=== PATIENT | male | born 1965 | race Caucasian/White ===

== ENCOUNTER 2024-09-13 07:45 | Observation (INO) ==
--- NOTE | 2024-08-22 14:54 | PAT Medication Instructions ---
Medication Instructions Date of Service August 22, 2024 Home Medications atorvastatin 20 mg tablet (Lipitor) 20 mg PO QAM celecoxib 50 mg capsule (Celebrex) 200 mg PO HS pantoprazole 20 mg tablet,delayed release 20 mg PO QAM sertraline 50 mg tablet 50 mg PO QAM ASK your surgeon for instructions celecoxib 50 mg capsule (Celebrex) 200 mg PO HS Take morning of surgery With a small sip of water, OTHERWISE NOTHING TO EAT OR DRINK AFTER MIDNIGHT: atorvastatin 20 mg tablet (Lipitor) 20 mg PO QAM pantoprazole 20 mg tablet,delayed release 20 mg PO QAM sertraline 50 mg tablet 50 mg PO QAM Other Notes If you have any questions please call us at [phone] or [phone] or [phone] or [phone]
--- NOTE | 2024-08-30 14:13 | Anesthesiology Consultation ---
Date of Service August 30, 2024 Assessment & Plan (1) Encounter for pre-operative examination: - will request copy of 08/23/24 PCP clearance note, Daniel High [facility]. Chart Review Chart Review: Pending: Refer to Additional Notes / Consult section and Patient seen in Pre Admission Testing Teaching & Discussion Pre-Anesthesia Teaching/Discussion Notes: Instructed NPO after midnight before surgery, except medications with 15 cc of water. Medication instructions provided according to the PAT guidelines. History Surgery Operation Date: 09/13/24 09:00 Proposed Procedures p Left Total Shoulder Arthroplasty, Possible Left Shoulder Biceps Tenodesis, Possible Left Shoulder Posterior Capsular Shift - Norman Palacios MD Height/Weight Height: 5 ft 8 in Weight: 88.5 kg Allergies Allergy/AdvReac Type Severity Reaction Status Date / Time Penicillins Allergy Unknown Hives Verified 08/18/24 09:19 Medications Home Medications Medication Instructions Recorded Confirmed Last Taken atorvastatin 20 mg tablet (Lipitor) 20 mg PO QAM 08/18/24 08/18/24 Unknown celecoxib 50 mg capsule (Celebrex) 200 mg PO HS 08/18/24 08/18/24 Unknown pantoprazole 20 mg tablet,delayed 20 mg PO QAM 08/18/24 08/18/24 Unknown release sertraline 50 mg tablet 50 mg PO QAM 08/18/24 08/18/24 Unknown Past Medical History Medical History Acid reflux stable w/ pantoprazole Depression Dyslipidemia History of atrial fibrillation x 1 episode >> in his early 40's, lasted ~24 hours; converted on his own without intervention > no issues since, no cardio History of esophageal dilatation (~2019) History of right tennis elbow Patient denies h/o stroke, seizures, heart attack, heart failure, DM, HTN, blood clots/DVTs or blood transfusions. Exercise / Class Metabolic Activity II 4-5 Yardwork/Stairs/Walk up hill (denies chest discomfort or shortness of breath with one flight of stairs) Past Family History Family History Other No family history of adverse response to anesthesia Past Surgical History Surgical History History of arthroscopic surgery of shoulder left History of carpal tunnel surgery of right wrist History of esophagogastroduodenoscopy (EGD) History of repair of ACL left Hx of appendectomy Hx of colonoscopy Past Anesthesia History No Hx of Anesthesia Complications and No Family Hx of Anesthesia Complications History of PONV No Hx of PONV and Hx of Motion Sickness Social History Smoking Status: Never smoker Do You Dip or Chew Tobacco: No Hx Alcohol Use: No Hx Substance Use: No substance use type: does not use Review of Systems Patient denies chest pain, shortness of breath, dyspnea on exertion, snoring, witnessed apneas, fever, chills, cough, wheezing, or palpitations. Physical Exam Vital Signs Vitals BP 118/80 P 64 TEMP 97.8 SP02 96% on RA RESP 18 Physical Patient resting comfortably in chair in no acute distress, alert and oriented, responding appropriately throughout visit Full cervical extension range of motion without pain TMD 3.5 finger breadths Mallampati Score 3 Dentition: intact, denies chipped or loose teeth, caps/crowns, implants or bridges Lungs: normal respiratory effort. Good air movement, clear throughout to auscultation, no adventitious breath sounds Cardiac: regular rate and rhythm, no murmurs noted Carotid arteries: negative bruit bilat Lab Results Anesthesia Preop Results Results Anesthesia Widget: WBC 5.30 K/ul (4.8-10.8) 08/30/24 Hgb 13.7 g/dl (14.0-18.0) L 08/30/24 Hct 41.8 % (42.0-52.0) L 08/30/24 Plt 195 K/uL (130-400) 08/30/24 Na 141 mmol/L (136-145) 08/30/24 K 4.0 mmol/L (3.5-5.1) 08/30/24 Cl 107 mmol/L (98-107) 08/30/24 CO2 29 mmol/L (21-32) 08/30/24 BUN 17 mg/dl (6-23) 08/30/24 Creat 0.94 mg/dl (0.6-1.4) 08/30/24 Glucose Level 118 mg/dl (70-99(Fasting)) H 08/30/24 PT 10.9 Seconds (9.0-12.0) 08/30/24 PTT 24 Seconds (21-31) 08/30/24 INR 1.0 (0.9-1.1) 08/30/24 Urine Color Yellow 08/30/24 Urine Appearance Clear (Clear) 08/30/24 Urine pH 6.5 (4.5-7.5) 08/30/24 Urine Specific [place] 1.021 (1.000-1.030) 08/30/24 Urine Protein Negative (Negative) 08/30/24 Urine Glucose (UA) Negative (Negative) 08/30/24 Urine Ketones Negative (Negative) 08/30/24 Urine Blood Negative (Negative) 08/30/24 Urine Nitrite Negative (Negative) 08/30/24 Urine Bilirubin Negative (Negative) 08/30/24 Urine Urobilinogen Negative (Negative) 08/30/24 Urine Leukocyte Esterase Negative (Negative) 08/30/24 Blood Type A Positive 08/30/24 Antibody Screen NEGATIVE 08/30/24 Testing Electrocardiogram Date: 08/30/24 Sinus bradycardia, rate 54 bpm Chest X-Ray Date: 08/30/24 No evidence of consolidation, collapse, or focal opacities. No acute cardiopulmonary abnormalities identified.
--- NOTE | 2024-09-10 10:04 | History & Physical Report ---
Date of Service September 10, 2024 Assessment & Plan (1) Osteoarthritis of left glenohumeral joint: Plan: End-stage osteoarthritis left glenohumeral joint. Document intact rotator cuff. Prior arthroscopy and prior MRI. Plan is for anatomic total shoulder replacement. May need augmented glenoid component or posterior capsular shift and will perform biceps tenodesis. Plan is for a stemless simplicity total shoulder replacement if bone quality satisfactory. History of Present Illness Chief Complaint: Chronic right shoulder pain and stiffness Primary Care Provider: Clara Thornton PA-C 58-year-old male progressive pain decreased range of motion in his shoulder due to osteoarthritis. History of arthroscopic surgery 2018 subacromial decompression removal large loose body joint debridement. Patient denies headaches, sweats, fevers, chills, double vision, blurred vision, cough, sore throat, dysphagia, chest pain, sob, wheezing, n/v/d/c, numbness, tingling, fatigue, urinary symptoms. ROS positive for depression, acid reflux, kidney stones, high cholesterol. Allergies Allergy/AdvReac Type Severity Reaction Status Date / Time Penicillins Allergy Unknown Hives Verified 08/18/24 09:19 Home Medications Medication Instructions Recorded Confirmed Type atorvastatin 20 mg tablet (Lipitor) 20 mg PO QAM 08/18/24 08/18/24 History celecoxib 50 mg capsule (Celebrex) 200 mg PO HS 08/18/24 08/18/24 History pantoprazole 20 mg tablet,delayed 20 mg PO QAM 08/18/24 08/18/24 History release sertraline 50 mg tablet 50 mg PO QAM 08/18/24 08/18/24 History Past Med/Surg History Problem List (Updated 09/10/24 @ 10:03 by Norman Palacios MD) Osteoarthritis of left glenohumeral joint Encounter for pre-operative examination Medical History Acid reflux stable w/ pantoprazole Depression History of atrial fibrillation x 1 episode >> in his early 40's, lasted ~24 hours; converted on his own without intervention > no issues since, no cardio Dyslipidemia History of esophageal dilatation (~2019) History of right tennis elbow Surgical History History of esophagogastroduodenoscopy (EGD) Hx of colonoscopy History of arthroscopic surgery of shoulder left Hx of appendectomy History of carpal tunnel surgery of right wrist History of repair of ACL left Family History Other No family history of adverse response to anesthesia Social History Smoking Status: Never smoker Second Hand Exposure: No; Do You Dip or Chew Tobacco: No; Tobacco Cessation Education Requested by Patient: No Hx Alcohol Use: No Hx Substance Use: No Preferred Language: Ivorian Communication Ability: Effective Atlassian Administrator Required: No Beliefs That Will Affect Care: None Current Living Situation: Spouse Other Information That Helps Us Care for You: No Feels Safe at Home: Yes Safety Concerns: Feels Safe At This Time Assistive Devices: Glasses and Hearing Aid - Bilateral Review of Systems All systems reviewed & are unremarkable except as noted in HPI & below Physical Exam Constitutional: WD/WN, vitals as above Respiratory: normal respiratory effort; no respiratory distress Cardiovascular: Rate/Rhythm: regular rate and regular rhythm Musculoskeletal: Left shoulder with glenohumeral crepitation with range of motion decreased range of motion with max of passive range of motion 100 degrees flexion 70 degrees external and internal rotation and abduction. Distal neurocirculatory exam intact. Still has good strength. Skin: no rashes, warm and dry Neurologic: normal touch/pain/proprioception Psychiatric: A+Ox3, euthymic affect Results & Data Diagnostic Findings End-stage glenohumeral osteoarthritis with B2 glenoid grade 4 osteoarthritis [id number] some posterior glenoid bone loss and some posterior humeral head subluxation
[~2024-09-13 07:45] MED LIST: BUPIVACAINE 0.5 % 5 MG/1 ML PF 10ML VIAL ONE; SODIUM CHLORIDE 0.9% PF INJ 10 ML VIAL ONE
[2024-09-13] MEDS ORDERED: MIDAZOLAM HCL 1 MG/ML 2ML VIAL ONE (08:00)
[2024-09-13] MEDS ORDERED: fentaNYL citrate PF 100 MCG/2 ML VIAL ONE (08:01)
[2024-09-13] MEDS ORDERED: ROCURONIUM BROMIDE 10 MG/ML 5 ML VIAL IV ONE (08:03)
[2024-09-13] MEDS ORDERED: PROPOFOL IV EMULSION 10 MG/ML 20 ML VIAL IV ONE (08:04)
[2024-09-13] MEDS ORDERED: METOCLOPRAMIDE HCL INJ 5 MG/ML 2 ML VIAL ONE (08:04)
[2024-09-13] MEDS ORDERED: DEXAMETHASONE SOD INJ 4 MG/ML VIAL ONE (08:04)
[2024-09-13] MEDS ORDERED: ONDANSETRON INJ 2 MG/ML 2 ML VIAL ONE (08:04)
[2024-09-13] MEDS: VANCOMYCIN HCL 1,250 MG in SODIUM CHLORIDE 0.9% 250 ML IV SCH ×2 (08:18→20:23)
[2024-09-13] MEDS: LR 60ML/HR IV SCH (08:18)
[2024-09-13] MEDS: LR 15ML/HR IV SCH (08:18)
[2024-09-13] MEDS: GABAPENTIN 600 MG DOSE PO SCH (08:31)
[2024-09-13] MEDS: METOCLOPRAMIDE HCL 10 MG TABLET PO SCH (08:32)
[2024-09-13] MEDS: ACETAMINOPHEN 500 MG TAB PO SCH ×2 (08:32→16:34)
[2024-09-13] MEDS: CeleBREX 200 MG CAP PO SCH (08:32)
[2024-09-13] MEDS: dexAMETHasone**PF** 10 MG/ML VIAL IV SCH (08:33)
[2024-09-13] MEDS: FAMOTIDINE 20 MG TAB PO SCH (08:35)
[2024-09-13] MEDS ORDERED: LIDOCAINE 2% 2 ML VIAL/AMP(20MG/ML) INFIL ONE (08:56)
[2024-09-13] MEDS ORDERED: PROMETHAZINE HCL 6.25 MG in SODIUM CHLORIDE 0.9% 50 ML IV PRN (09:31)
[2024-09-13] MEDS ORDERED: ATROPINE SULFATE 0.1 MG/ML 10ML SYR IV PRN (09:31)
[2024-09-13] MEDS ORDERED: LABETALOL HCL IV 5 MG/ML 20ML IV PRN (09:31)
[2024-09-13] MEDS ORDERED: fentaNYL citrate PF 100 MCG/2 ML VIAL IV PRN (09:31)
[2024-09-13] MEDS ORDERED: ONDANSETRON INJ 2 MG/ML 2 ML VIAL IV PRN ×2 (09:31→15:06)
[2024-09-13] MEDS ORDERED: KETOROLAC 30 MG/ML VIAL IV PRN (09:31)
--- NOTE | 2024-09-13 10:02 | History & Physical Bridge Note ---
Date of Service September 13, 2024 History & Physical Bridge Note I have examined the patient, reviewed the History & Physical and in the interval since the performance of the History & Physical I have noted the following changes of clinical significance: no changes noted
[2024-09-13] MEDS: TRANEXAMIC ACID 1,000 MG **IV Pre-op IV SCH (10:10)
--- OUTSIDE RECORDS SUMMARY | 2024-09-13 10:53 | External Medical Summary | Summary of Care ---
Author Name Unknown Organization [facility] Address [address] [place] [address] Phone [phone] Care Team Providers Care Ob Scrub Tech Name Role Phone Daniel High PA-C Primary Care Provide r Reason for Visit * Reason Comments Physical-Exam No concerns. Having surgery in a couple of weeks replacing my left shoulder. Encounter Details Date Type Department Care Team (Late st Contact Info) Description 08/23/2024 2:00 PM EST Office Visit Betty Benz [address] [facility] [place] [id number] Daniel High PA-C [address] [facility] [place] [id number] Preoperative general physical examination*; Pure hypercholesterolemia; Gastroesophageal reflux disease without esophagitis; Anxiety Allergies Active Allergy Reactions Criticality Noted Date Comments Penicillin G Hives Low 08/23/2024 Penicillins Hives 12/07/2002 documented as of this encounter (statuses as of 09/05/2024) Medications Atorvastatin Calcium 20 MG Oral Tablet (Lipitor)Indications:Pur e hypercholesterolemia TAKE ONE (1) TABLET BY MOUTH EVERY EVENING. 90 Tablet 07/04/20 24 Active Pantoprazole Sodium 40 MG Oral Tablet Delayed Release (Protonix)Indications:Ga stroesophageal reflux disease without esophagitis TAKE ONE (1) TABLET BY MOUTH IN THE MORNING. 90 Tablet 07/04/20 24 Active Sertraline HCl 50 MG Oral Tablet (Zoloft)Indications:Anxi ety TAKE ONE (1) TABLET BY MOUTH IN THE MORNING. 90 Tablet 07/04/20 24 Active documented as of this encounter (statuses as of 09/05/2024) Active Problems Problem Noted Date Diagnosed Date Prediabetes 09/24/2023 Gastritis, bile acid reflux 09/09/2020 Anxiety 09/05/2018 Gastroesophageal reflux disease 09/05/2018 History of atrial fibrillation 12/31/2011 Pure hypercholesterolemia documented as of this encounter (statuses as of 09/05/2024) Resolved Problems Problem Noted Date Diagnosed Date Resolved Date Knee pain, right 06/27/2015 11/05/2015 documented as of this encounter (statuses as of 09/05/2024) Immunizations Name Administration Dates Next Due TD, Preservative Free 09/07/2018 TDAP (age 10 and older)(Boostrix) 07/08/2023 TDAP, Age 7 and older, IM (Adacel) 07/16/2008 documented as of this encounter Social History Tobacco Use Types Packs/Day Years Used Date Smoking Tobacco: Never Smokeless Tobacco: Never Tobacco Cessation:Counseling Given: Not Answered Alcohol Use Standard Drinks/Week Comments No 0 (1 standard drink = 0.6 oz pur e alcohol) PHQ-2 Answer Date Recorded PHQ Adult Total Score 0 09/23/2023 Hunger Vital Sign Answer Date Recorded Within the past 12 months, y ou worried that your food would run out before you got the money to buy more. Never true 09/23/19 24 Within the past 12 months, t he food you bought just didn't last and you didn't have money to get more. Never true 09/23/2023 Childcare Answer Date Recorded Do you feel overwhelmed with taking care of a child, family member or friend? No 09/23/2023 Does your family need help f inding childcare? (Household - for ages 0-17 years) Not on file 09/23/2023 Clothing Answer Date Recorded Have you been unable to get clothing when it was really needed? No 09/23/2023 Is your family able to get c lothes or diapers when needed? (Household - for ages 0-17 years) Not on file 09/23/2023 Personal Safety Answer Date Recorded Do you feel unsafe or have concerns for your saf ety? No 09/23/2023 Do you have concerns for you r family's safety? (Household - for ages 0-17 years) Not on file 09/23/2023 Utilities Answer Date Recorded Do you have trouble paying y our heating, water, or electric bill? No 09/23/2023 Is your family able to pay t he heat, water, or electric bill? (Household - for ages 0-17 years) Not on file 09/23/2023 Does your family have access to good internet? (Household - for ages 0-17 years) Not on file 09/23/2023 Employment Status Answer Date Recorded Are you unemployed or without regular income? No 09/23/2023 Does the household have a [facility] source of income? (Household - for ages 0-17 years) Not on file 09/23/2023 Social Connections Answer Date Recorded How often do you feel lonely or isolated from th ose around you? Never 09/23/2023 Financial Resource Strain Answer Date R ecorded Do you have any trouble payi ng for your medications, or do you think you might in the future? No 09/23/2023 Does your family have troubl e paying for medicine? (Household - for ages 0-17 years) Not on file 09/23/2023 Transportation Needs Answer Date Record ed READ ONLY Do you have troubl e getting a ride to medical visits or work? Never True 09/23/2023 Does your family have a hard time getting a ride to doctors visits? (Household - for ages 0-17 years) Not on file 09/23/2023 Has lack of transportation k ept you from medical appointments, meetings, work, or from getting things needed for daily living? Check all that apply. (Adult - for ages 18 years and over) Not on file 09/23/2023 Do you (or your family) have trouble finding or paying for a ride (transportation)? (Household - for ages 0-17 years) Not on file 09/23/2023 Housing Stability Answer Date Recorded Do you currently live in a s helter or have no steady place to sleep at night? No 09/23/2023 READ ONLY Do you think you a re at risk of becoming homeless? No 09/23/2023 Does your family worry about paying for your home or becoming homeless? (Household - for ages 0-17 years) Not on file 0 09/23/2023 Are you homeless or worried that you might be in the future? (Adult - for ages 18 years and over) Not on file Are you (or your family) jonathan eless or worried that you might be in the future? (Household - for ages 0-17 years) Not on file Food Insecurity Answer Date Recorded Do you need food for this week? No 09/23/2023 Are you able to get enough f ood for your family? (Household - for ages 0-17 years) Not on file 09/23/2023 Does your family need food t his week? (Household - for ages 0-17 years) Not on file 09/23/2023 Do you always have enough fo od for your family? (Household - for ages 0-17 years) Not on file 09/23/2023 Food Insecurity Answer Date Recorded Within the past 12 months, y ou worried that your food would run out before you got the money to buy more. Never true 09/23/19 24 Within the past 12 months, t he food you bought just didn't last and you didn't have money to get more. Never true 09/23/2023 Do you need food for this week? 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 Not on file Not on file documented as of this encounter Last Filed Vital Signs Vital Sign Reading Time Taken Comments Blood Pressure 120/60 08/23/2024 2:06 PM EST Pulse 60 08/23/2024 2:06 PM EST Temperature 35.6 C (96 F) 08/23/2024 2:06 PM EST Respiratory Rate 20 08/23/2024 2:06 PM EST Oxygen Saturation 99% 08/23/2024 2:06 PM EST Inhaled Oxygen Concentration - - Weight 88.9 kg (196 lb) 08/23/2024 2:06 PM EST Height 172.7 cm (5' 8") 08/23/2024 2:06 PM EST Body Mass Index 29.8 08/23/2024 2:06 PM EST documented in this encounter Progress Notes * Daniel High PA-C - 08/23/2024 2:15 PM EST Subjective Levy Pond is a 58 year old male. Chief Complaint Patient presents with Physical-Exam No concerns. Having surgery in a couple of weeks replacing my left shoulder. HPI: Levy is a 58 year old male who presents for preoperative examination prior to left total shoulder arthroplasty performed by Dr. Palacios at [facility] [place] [place] on 09/13/2024. Has no other concerns today. Has preop studies scheduled in [place] next week. Denies h/o heart attack and stroke. Denies current angina and stroke symptoms. PMH: Patient Active Problem List Diagnosis History of atrial fibrillation Pure hypercholesterolemia Anxiety Gastroesophageal reflux disease Gastritis, bile acid reflux Prediabetes Current Outpatient Medications Medication Sig Dispense Refill Atorvastatin Calcium 20 MG Oral Tablet (Lipitor) TAKE ONE (1) TABLET BY MOUTH EVERY EVENING. 90 Tablet 0 Pantoprazole Sodium 40 MG Oral Tablet Delayed Release (Protonix) TAKE ONE (1) TABLET BY MOUTH IN THE MORNING. 90 Tablet 0 Sertraline HCl 50 MG Oral Tablet (Zoloft) TAKE ONE (1) TABLET BY MOUTH IN THE MORNING. 90 Tablet 0 No current facility-administered medications for this visit. Past Medical History: Diagnosis Date Pure hypercholesterolemia Past Surgical History: Procedure Laterality Date CARPAL TUNNEL SURGERY Right 04/2019 Dr. Nowak COLONOSCOPY, DIAGNOSTIC (RECTUM) 03/27/2013 normal, repeat 10 yrs/COLONOSCOPY FLEXIBLE PROXIMAL DIAGNOSTIC performed by Emmanuel Maher MD at [facility] COLONOSCOPY, DIAGNOSTIC (RECTUM) N/A 04/01/2023 normal/recall 10 years/COLONOSCOPY FLEXIBLE PROXIMAL DIAGNOSTIC performed by Jana Gill DO at [facility]COPY [facility] EGD, FLEXIBLE, DIAGNOSTIC 03/27/2013 normal/UPPER GI ENDOSCOPY DIAGNOSTIC performed by Emmanuel Maher MD at [facility]COPY [facility] EGD, FLEXIBLE, DIAGNOSTIC 07/31/2016 mild to moderate inflammation no evidence of infection or cancer/repeat 1-2 months/ESOPHAGOGASTRODUODENOSCOPY (EGD), FLEXIBLE, TRANSORAL, DIAGNOSTIC performed by Anselmo Bermudez MD at ENDOSCOPY [facility] EGD, FLEXIBLE, DIAGNOSTIC 09/02/2016 mild inflammation from gastroesophageal reflux/ESOPHAGOGASTRODUODENOSCOPY (EGD), FLEXIBLE, TRANSORAL, DIAGNOSTIC performed by Anselmo Bermudez MD at ENDOSCOPY [facility] EXPLORATORY ELBOW SURGERY Right 04/01/2017 HEMORRHOIDECTOMY,EXTERNAL, 2 + COLUMNS 07/30/2009 [facility] [place] REMOVAL OF APPENDIX SHOULDER ARTHROSCOPY/SURGERY Left 04/2018 Dr. Nowak XR ACL SERIES LEFT COMPOSITE Review of patient's allergies indicates: Allergen Reactions Penicillins Hives Penicillin G Hives Family History Problem Relation Name Age of Onset Cancer Mother Uterus Cancer Father Skin Other (benign prostatic hypertrophy) Father Cancer Grandfather (Paternal) skin Diabetes Grandfather (Paternal) Diabetes Grandmother (Paternal) Family Status Relation Status Mo at age 71 lung cancer Fa Alive PGFA (Not Specified) PGMA (Not Specified) Social History Socioeconomic History Marital status: Spouse name: Not on file Number of children: Not on file Years of education: Not on file Highest education level: Not on file Occupational History Occupation: technical training manager Employer: [employer] Tobacco Use Smoking status: Never Smokeless tobacco: Never Vaping Use Vaping status: Never Used Substance and Sexual Activity Alcohol use: No Drug use: No Sexual activity: Not on file Other Topics Concern Not on file Social History Narrative Lives with spouse and children Social Needs Financial Resource Strain: Low Risk (09/23/2023) Financial Resource Strain Do you have any trouble paying for your medications, or do you think you might in the future? (Adult - for ages 18 years and over): No Does your family have trouble paying for medicine? (Household - for ages 0-17 years): Not on file Food Insecurity: No Food Insecurity (09/23/2023) Food Insecurity Worried About Running Out of Food in the Last Year: Never true Ran Out of Food in the Last Year: Never true Do you need food for this week? (Adult - for ages 18 years and over): No Transportation Needs: No Transportation Needs (09/23/2023) Transportation Needs Do you have trouble getting a ride to medical visits or work? (Adult - for ages 18 years and over):Never True Does your family have a hard time getting a ride to doctors visits? (Household - for ages 0-17 years): Not on file Has lack of transportation kept you from medical appointments, meetings, work, or from getting things needed for daily living? Check all that apply. (Adult - for ages 18 years and over): Not on file Do you (or your family) have trouble finding or paying for a ride (transportation)? (Household - for ages 0-17 years): Not on file Social Connections: Socially Integrated (09/23/2023) Social Connections How often do you feel lonely or isolated from those around you? (Adult - for ages 18 years and over): Never Housing Stability: Low Risk (09/23/2023) Housing Stability Do you currently live in a [place] [facility] or have no steady place to sleep at night? (Adult - for ages 18 years and over): No Do you think you are at risk of becoming homeless? (Adult - for ages 18 years and over): No Does your family worry about paying for your home or becoming homeless? (Household - for ages 0-17 years): Not on file Are you homeless or worried that you might be in the future? (Adult - for ages 18 years and over): Not on file Are you (or your family) homeless or worried that you might be in the future? (Household - for ages0-17 years): Not on file Review of Systems Constitutional: Negative for appetite change, chills, diaphoresis, fatigue, fever and unexpected weight change. HENT: Negative for congestion, ear discharge, ear pain, hearing loss, postnasal drip, rhinorrhea, sinus pressure, sinus pain, sore throat and trouble swallowing. Eyes: Negative for photophobia, pain, discharge, redness, itching and visual disturbance. Respiratory: Negative for cough, chest tightness, shortness of breath and wheezing. Cardiovascular: Negative for chest pain, palpitations and leg swelling. Gastrointestinal: Negative for abdominal pain, blood in stool, constipation, diarrhea, nausea and vomiting. Genitourinary: Negative for decreased urine volume, difficulty urinating, dysuria, flank pain, frequency, hematuria and urgency. Musculoskeletal: Positive for arthralgias. Negative for back pain, gait problem, joint swelling, myalgias, neck pain and neck stiffness. Skin: Negative for color change, pallor, rash and wound. Neurological: Negative for dizziness, syncope, weakness, light-headedness, numbness and headaches. Psychiatric/Behavioral: Negative for agitation, behavioral problems, confusion, decreased concentration, dysphoric mood, hallucinations, self-injury, sleep disturbance and suicidal ideas. The patientis not nervous/anxious and is not hyperactive. Objective BP 120/60 | Pulse 60 | Temp 96 F (35.6 C) (Tympanic) | Resp 20 | Ht 5' 8" (1.727 m) | Wt 196 lb(88.9 kg) | SpO2 99% | BMI 29.80 kg/m | BSA 2.07 m Physical Exam Constitutional: General: He is not in acute distress. Appearance: Normal appearance. He is well-developed and normal weight. He is not ill-appearing, toxic-appearing or diaphoretic. HENT: Head: Normocephalic and atraumatic. Jaw: No trismus. Right Ear: Tympanic membrane, ear canal and external ear normal. There is no impacted cerumen. Left Ear: Tympanic membrane, ear canal and external ear normal. There is no impacted cerumen. Nose: Nose normal. No mucosal edema, congestion or rhinorrhea. Right Sinus: No maxillary sinus tenderness or frontal sinus tenderness. Left Sinus: No maxillary sinus tenderness or frontal sinus tenderness. Mouth/Throat: Mouth: Mucous membranes are moist. Pharynx: Oropharynx is clear. Uvula midline. No oropharyngeal exudate, posterior oropharyngeal erythema or uvula swelling. Tonsils: No tonsillar abscesses. Eyes: General: No scleral icterus. Right eye: No discharge. Left eye: No discharge. Extraocular Movements: Extraocular movements intact. Conjunctiva/sclera: Conjunctivae normal. Pupils: Pupils are equal, round, and reactive to light. Cardiovascular: Rate and Rhythm: Normal rate and regular rhythm. Pulses: Normal pulses. Heart sounds: Normal heart sounds. No murmur heard. No friction rub. No gallop. Pulmonary: Effort: Pulmonary effort is normal. No respiratory distress. Breath sounds: Normal breath sounds. No stridor. No decreased breath sounds, wheezing, rhonchi or rales. Chest: Chest wall: No tenderness. Abdominal: General: Abdomen is flat. Bowel sounds are normal. There is no distension or abdominal bruit. Palpations: Abdomen is soft. Abdomen is not rigid. There is no hepatomegaly, splenomegaly or mass. Tenderness: There is no abdominal tenderness. There is no right CVA tenderness, left CVA tenderness, guarding or rebound. Negative signs include Catalan's sign and McBurney's sign. Hernia: No hernia is present. Musculoskeletal: General: No swelling, tenderness, deformity or signs of injury. Normal range of motion. Cervical back: Neck supple. Right lower leg: No edema. Left lower leg: No edema. Lymphadenopathy: Cervical: No cervical adenopathy. Skin: General: Skin is warm and dry. Coloration: Skin is not jaundiced or pale. Findings: No erythema or rash. Neurological: General: No focal deficit present. Mental Status: He is alert and oriented to person, place, and time. Mental status is at baseline. Psychiatric: Mood and Affect: Mood normal. Behavior: Behavior normal. Thought Content: Thought content normal. Judgment: Judgment normal. ASSESSMENT/PLAN: Preoperative general physical examination (Primary) As long as preop studies are stable, patient is low risk and may undergo surgery. Pure hypercholesterolemia Continue Lipitor. Gastroesophageal reflux disease without esophagitis Continue pantoprazole. Anxiety Continue sertraline. Addendum: Received results for preop EKG, CXR, and labs all of which are stable. Patient is low risk and may proceed with surgery. Follow Up: Return if symptoms worsen or fail to improve. Daniel High PA-C documented in this encounter Nursing Notes * Evelin Ferrell CCMA - 08/23/2024 2:05 PM EST Chief Complaint Patient presents with Physical-Exam No concerns. Having surgery in a couple of weeks replacing my left shoulder. documented in this encounter Plan of Treatment Scheduled Procedures Name Priority Associated Diagnoses Date/Ti me COLONOSCOPY FLEXIBLE PROXIMA L DIAGNOSTIC Recall Screening for colon cancer Health Maintenance Due Date Last Done Comments HIV Screening 1981 Hepatitis C Screening 1984 Hepatitis B Vaccine (1 of 3 - 19+ 3-dose series) 1985 Cologuard 12/16/2011 Fecal Occult Blood Test 12/16/2011 Sigmoidoscopy 12/16/2011 Pneumococcal Vaccine: 50+ Years (1 of 1 - PCV) 2016 Zoster Vaccines (1 of 2) 2016 COVID-19 Vaccine ( season) 2024 Influenza Vaccine (FLU shot) (#1) 2024 Depression Screening 09/22/2024 09/23/2023 HbA1c 09/22/2024 09/23/2023 Lipid Panel 09/22/2028 09/23/2023, 03/0 12/2022, 09/18/2021, Additional history exists Colonoscopy 04/01/2033 04/01/2023, 03/19, 03/27/2013, Additional history exists Colorectal Cancer Screening 04/01/2033 DTap/Tdap Vaccines (4 - Td or Tdap) 07/08/2033 07/08/2023, 09/07/2018, 07/16/2008 HPV (Gardasil) Vaccine Aged Out No lo nger eligible based on patient's age to complete this topic MENINGOCOCCAL (MENACTRA/MENVEO) Aged Out No longer eligible based on patient's age to complete this topic Meningitis B Vaccine (Bexsero/Trumemba) Aged Out No longer eligible based on patient's age to complete this topic documented as of this encounter Medical Devices Not on filedocumented as of this encounter Visit Diagnoses Diagnosis Preoperative general physical examination- Primary Other specified pre-operative examination Pure hypercholesterolemia Gastroesophageal reflux disease without esophagitis Esophageal reflux Anxiety Anxiety state, unspecified documented in this encounter Care Teams Ob Scrub Tech Relationship Specialty Start Date End Date Daniel High PA-C [address] [place] [id number] PCP - General Physician Boilermaker Fitter 04/01/23 documented as of this encounter
--- OUTSIDE RECORDS SUMMARY | 2024-09-13 10:53 | External Medical Summary | Summary of Care ---
Author Name Unknown Organization [facility] [address] [facility] [address] Phone [phone] Care Team Providers Care Galley Boy Name Role Phone Daniel High PA-C Primary Care Provide r Encounter Details Date Type Department Care Team (Late st Contact Info) Description 08/30/2024 Result Scan Unspecified Department <No scans attached> Allergies Active Allergy Reactions Criticality Noted Date [...] Date Smoking Tobacco: Never Smokeless Tobacco: Never Alcohol Use Standard Drinks/Week Comments No 0 [...] No 09/23/2023 Does the household have a re gular source of income? 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 Not on file Not on file documented as of this encounter Plan of Treatment Scheduled Procedures [...] Vaccines (1 of 2) 2016 COVID-19 Vaccine (1 - season) 2024 Influenza Vaccine (FLU shot) (#1) 2024 Depression Screening 09/22/2024 09/23/2023 HbA1c 09/22/2024 09/23/2023 Lipid Panel 09/22/2028 09/23/2023, 12/2022, 09/18/2021, Additional history exists Colonoscopy 04/01/2033 [...] Not on filedocumented as of this encounter Procedures Procedure Name Priority Date/Time Associated Diagnosis Comments EKG SCANNED RESULT 08/30/2024 documented in this encounter Results * EKG SCANNED RESULT (08/30/2024) 08/30/2024 us No Physician Data Unknown EKG Final Result documented in this encounter Care Teams Galley Boy Relationship Specialty Start Date End Date Daniel High PA-C [address] [place] [phone] PCP - General Physician Flight Surgeon 04/01/23 documented as of this encounter
--- OUTSIDE RECORDS SUMMARY | 2024-09-13 10:53 | External Medical Summary | Summary of Care ---
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 file [...] of 2) 2016 COVID-19 Vaccine (1 - 2023- season) 2024 Influenza Vaccine (FLU shot) (#1) [...] Procedure Name Priority Date/Time Associated Diagnosis Comments XR CHEST 2 VIEWS Routine 08/30/2024 CHEMISTRY-OUTSIDE Routine 08/30/2024 documented in this encounter Results * (ABNORMAL) CHEMISTRY-OUTSIDE (08/30/2024) Not all results display below - see scan for full detail OUTSIDE LAB (SEE SCANNED REPORT) Comment:SCAN INCLUDES - PREA DMISSION TESTING: CBCD, PT, INR, PTT, BMP, ALB, UA CREATININE 0.94 0.6 - 1.4 MG/DL OUTSIDE LAB (SEE SCANNED REPORT) EGFR 94.55 OUTSIDE LA B (SEE SCANNED REPORT) POTASSIUM 4.0 3.5 - 5.1 MMOL/L OUTSIDE LAB (SEE SCANNED REPORT) GLUCOSE 118(A) 70 - 99 MG/DL OUTSIDE LAB (SEE SCANNED REPORT) HOURS FASTING OUTSID E LAB (SEE SCANNED REPORT) TRIGLYCERIDES-OU TSIDE LAB OUTSIDE LAB (SEE SCANNED REPORT) CHOLESTEROL-OUTS [facility] OUTSIDE LAB (SEE SCANNED REPORT) HDL-OUTSIDE LAB OUTS [facility] (SEE SCANNED REPORT) CHOL/HDL RATIO-OUTSIDE LAB OUTSIDE LAB (SEE SCANNED REPORT) LDL (CALCULATED)-OUT SIDE LAB OUTSIDE LAB (SEE SCANNED REPORT) LDL (DIRECT MEASURE)-OUTSIDE LAB OUTSIDE LAB (SEE SCANNED REPORT) HEMOGLOBIN, [id number] LAB OUTSIDE LAB (SEE SCANNED REPORT) PHOSPHORUS-OUTSI DE LAB OUTSIDE LAB (SEE SCANNED REPORT) PTH-OUTSIDE LAB OUTS [facility] (SEE SCANNED REPORT) MICROALBUMIN RATIO-OUTSIDE LAB OUTSIDE LAB (SEE SCANNED REPORT) PROTEIN, UA-OUTSIDE LAB NEGATIVE NEGATIVE OUTSIDE LAB (SEE SCANNED REPORT) HGB 13.7(A) 14.0 - 18.,0 G/DL OUTSIDE LAB (SEE SCANNED REPORT) 08/30/2024 Norman Palacios MD LABORATORY Final Resu lt OUTSIDE LAB (SEE SCANNED REPORT) * XR CHEST 2 VIEWS (08/30/2024) Anatomical Region Laterality Modality Chest Other 08/30/2024 Norman Palacios MD RADIOLOGY (RAD GENERAL) Fi nal Result documented in this encounter Care Teams Shift Mechanic Relationship Specialty Start Date End Date Daniel High PA-C [address] [place] [id number] PCP - General Physician Seismology Teacher 04/01/23 documented as of this encounter
[2024-09-13] MEDS: EPINEPHrine HCL INJ 10 MG/10 ML VIAL ONE (11:08)
[2024-09-13] MEDS ORDERED: KETOROLAC 30 MG/ML VIAL ONE (11:58)
[2024-09-13] MEDS ORDERED: SUGAMMADEX SODIUM 200 MG/2 ML VIAL IV ONE (11:58)
[2024-09-13] MEDS: TRANEXAMIC ACID 1,000 MG **IV Intra-op IV SCH (13:07)
--- NOTE | 2024-09-13 13:49 | Operative Report ---
Post Operative Report Pre & Post Diagnosis Operation Date: 09/13/24 09:50 Pre-Op Diagnosis: Primary Osteoarthritis of Left Shoulder, glenoid bone loss and posterior instability and biceps tenosynovitis. Post-Op Diagnosis: Primary Osteoarthritis of Left Shoulder, glenoid bone loss and posterior instability and biceps tenosynovitis. I identified the patient and participated in the time-out.: Yes Procedure Operation Date: 09/13/24 09:50 Actual Procedures p Left Total Shoulder Arthroplasty, Left Shoulder Biceps Tenodesis, Left Shoulder Posterior Capsular Shift(Left) - Norman Palacios MD Surgeon Norman Palacios MD Senior Web Designer Jorge SANTANA Estimated Blood Loss 5 Findings Consistent with Post-Op Diagnosis Specimens Humeral head Drains None Anesthesia Type General Regional Complications none Disposition Disposition: Recovery Room Indications 58-year-old male with chronic progressive osteoarthritis left shoulder with limited function and pain. Radiographs demonstrate severe end-stage glenohumeral osteoarthritis with a B2 glenoid posterior subluxation humerus large circumferential osteophytes and intact rotator cuff with chronic biceps tenosynovitis. Description of Procedure Patient was taken to the operating room anesthetized under regional block and general anesthetic. Patient was placed in a 40 degree beach chair position with a foam headrest protective eyewear, all extremities padded, teds and SCDs were placed. A towel roll was placed on the medial border of the scapula of the left upper extremity. The arm was examined and range of motion demonstrated 120 degrees forward flexion 80 degrees abduction and 30 degrees external rotation. An anterior deltopectoral approach was performed. Longitudinal incision was made in deltopectoral interval. Skin incised sharply and subcutaneous flaps elevated. The deltopectoral interval was identified. The cephalic vein demonstrated medium sized vein. 1 superior crossing vein was tied off with silk ties and divided. The cephalic vein was retracted laterally with the deltoid. The upper centimeter of the pectoralis was released for inferior exposure. Frederick ps tendon demonstrated chronic tenosynovitis which was resected around the biceps.. The biceps was tenodesed to the pectoralis tendon using #2 FiberWire [id number] sutures using a whipstitch and uggqil-zc-lyefv technique. Proximal biceps was resected. Rotator cuff findings demonstrated intact normal- appearing rotator cuff. The circumflex vessels were tied off with silk ties and divided laterally. The subscapularis muscle fibers were split at the level of circumflex vessels and released off the inferior capsule with a Kitner elevator and then a blunt Hohmann retractor was placed protect the axillary nerve. The rotator interval was released down to the level of the glenoid. The subscapularis tendon was taken down with a transtendinous incision leaving a cuff of tissue for repair on the lesser tuberosity. The humeral head findings demonstrated severe osteoarthritis with some flattening of the humeral head and complete eburnated bone with intra-articular osteophytes circumferential osteophytes very large osteophytes inferiorly.. The inferior osteophytes were resected using an artist chisel and rongeur. Remainder the osteophytes were circumferentially resected with a rongeur. The inferior capsule was released off the bone subperiosteally using a Orourke elevator. A #1 Vicryl traction suture was placed into the free edge of the subscapularis tendon. A Fukuda retractor was placed into the joint. Capsule was released with Johnson scissors down to the glenoid and off of the anterior glenoid to the rotator interval which was released to meet the capsular release creating a 360 degree release of subscapularis tendon. Very large loose body was calcified into the anterior capsule and this was removed. An anterior Bankart retractor was placed. The glenoid and labral findings demonstrated B2 glenoid with eburnated bone posteriorly some articular cartilage anteriorly remaining and degeneration labrum circumferentially... An anterior-inferior and posterior inferior capsule release was performed electrocautery on bone and a Orourke elevator. The axillary nerve was protected inferiorly with the blunt Hohmann. Osteophytes were resected with a rongeur. Attention was taken back to the humeral head. Humeral head was exposed with extension and external rotation. The oscillating saw was used to make an anatomic neck cut removing the articular surface. All the ci rcumferential remaining osteophytes were trimmed with a rongeur. The humerus was sized for a 2 nucleus and a 50 mm humeral head. The bone was assessed with a thumb press test and there was solid cancellous bone. The guide for the nucleus was placed centrally and then the guidepin was placed. The surface reamer was used followed by the central drill for the nucleus. The trial nucleus was inserted and the cut protector was placed. The humerus was retracted posterior to the glenoid . A Tornier retractor ,Hohmann retractors as well as an anterior Bankart retractor were placed. The glenoid was fully exposed. The Tornier Cortiloc glenoid was used. Due to the B2 glenoid I chose to use an augmented polyethylene glenoid component with 25 degree augment. The 40 radius 25 degree Cortiloc size was chosen. The augmented guide was used to choose the position of the central guidepin which was placed at the ridge in the area of the B2 glenoid. This area was clearly defined by curetting of the articular cartilage that remained anteriorly so we had just bone exposed on the glenoid. After the guide pin was placed the 40 radius medium reamer was used to ream the anterior glenoid and then the posterior glenoid was reamed with the 25 degree angled reamer after a drill hole was made for the reaming guide at the appropriate position for the implant. The guide for the peripheral drill holes was placed and the drill holes were made. The central drill for the central press-fit peg of the polyethylene was then drilled. There was hard bone of good quality. The trial reduction performed with stable fixation. The trial removed and the glenoid copiously irrigated with pulsed saline solution. The drill holes were packed with epinephrine-soaked tampons. The Palacos G cement was va cuum mixed. The medium left 40 radius 25 degree Augmentin Cortiloc polyethylene glenoid component was then cemented in position after drying the glenoid after removal of the tampons. Fixation was excellent. All excess cement was cleared. When the cement cured we moved onto removing the cut protector doing a trial reduction with a 50 x 19 millimeter humeral head trial. Stability was assessed and there was too much posterior of subluxation and some clicking and subluxation with flexion internal rotation so I had to upsize this to a 52 x 23 soft tissue balancing head however this still had a little bit instability so I felt we should proceed with the capsular shift. The trial implants were removed the cut protector was placed back in position and retraction of the humeral head posteriorly was performed that we went ahead and used #1 Vicryl plication sutures in [id number] fashion with 2 sutures to shift the inferior capsule superiorly and tighten the posterior capsule. Went back and that it another trial reduction with a 52 x 23 soft tissue balancing head and now the shoulder was stable. Soft tissue tension on the subscapularis tendon was satisfactory. The trial components of the humeral head were removed and the 3 drill holes were made in the harder bone in the biceps groove area and transosseous #5 FiberWire sutures were placed. Then the humeral cut surface was reexposed with retractors and after irrigation the size 2 nucleus was impacted leaving it slightly proud until the simplicity 52 x 23 mm humeral head was placed into the nucleus and then both were impacted into the humerus with a tight press-fit. The humerus was reduced to the glenoid. The stability was verified. There was no posterior instability noted. The subscapularis tendon was repaired [id number]-[id number] # 5 FiberWire sutures using a Hemanth-Armani suture technique. Lateral row fixation was performed with interrupted kpptfr-gr-adxuf #2 FiberWire sutures and rotator interval was closed with #2 FiberWire sutures. Range of motion demonstrated 80 to 90 degrees of flexion and abduction and 45 degrees external rotation without tension on repair. The pectoralis was repaired with frqvki-bx-odsix #2 FiberWire sutures placing sutures back through the biceps tendon to reinforce the tenodesis. The deltopectoral interval was repaired with dhupvs-rn-kyfdu #1 Vicryl sutures. The subcutaneous tissue was repaired with 2-0 Vicryl sutures and the skin was closed with kermit. A Silverlon sterile dressing was applied and a pillow sling immobilizer. The patient tolerated the procedure well. Sindhu SANTANA acted as assistant media buyer throughout the procedure. He functioned as assistant media buyer assisting in all aspects of the procedure including patient positioning prepping draping, arm positioning, soft tissue retraction,, instrument management, subcutaneous and skin closure and postop care the patient as well. I attest to the content of the Intraoperative Record and any orders documented therein. Any exceptions are noted below.
--- NOTE | 2024-09-13 14:25 | XRay Report ---
XR shoulder LT min 2V routine CLINICAL HISTORY: Post shoulder surgery COMPARISON: None FINDINGS: Left shoulder prosthesis shows no hardware complication. There is expected soft tissue gas . Skin kermit are present. IMPRESSION: Unremarkable postoperative exam. ACT 112: Negative or not required by law. Electronically signed by: Levy Mcghee M.D. 09/13/2024 2:24 PM
--- NOTE | 2024-09-13 15:01 | Anesthesiology Progress Note ---
Date of Service September 13, 2024 Anesthesia Post Procedure Vital Signs Vital Signs: Temp Pulse Pulse Resp BP Pulse Ox O2 Del Method 09/13/24 14:45 36.6 C 92 H 16 132/86 95 Nasal Cannula 09/13/24 14:35 97 H 17 127/85 92 Room Air 09/13/24 14:25 94 H 15 128/87 92 Oxymask 09/13/24 14:15 95 H 19 125/88 94 Oxymask 09/13/24 14:05 94 H 17 129/80 94 Oxymask 09/13/24 13:55 92 H 19 140/82 93 Oxymask 09/13/24 13:47 36.0 C L 96 H 15 124/79 96 Oxymask 09/13/24 08:19 36.6 C 60 20 138/95 95 Room Air O2 Flow Rate 09/13/24 14:45 2 09/13/24 14:35 0 09/13/24 14:25 2 09/13/24 14:15 8 09/13/24 14:05 8 09/13/24 13:55 8 09/13/24 13:47 8 09/13/24 08:19 Pain Intensity Left Shoulder: Pain Intensity: 1 Transfer of Care Handoff Completed per policy Notes Mental Status: alert / awake / arousable and participated in evaluation Nausea / Vomiting: adequately controlled Pain: adequately controlled Airway Patency, RR, SpO2: stable & adequate BP & HR: stable & adequate Hydration State: stable & adequate Anesthetic Complications: no major complications apparent and Pt Satisfied with anesthetic care
[2024-09-13] MEDS ORDERED: bisacodyL 10 MG SUPP PR PRN (15:06)
[2024-09-13] MEDS ORDERED: KETOROLAC TROMETHAMINE 15 MG/ML VIAL IV PRN (15:06)
[2024-09-13] MEDS ORDERED: METOCLOPRAMIDE HCL INJ 5 MG/ML 2 ML VIAL IV PRN (15:06)
[2024-09-13] MEDS ORDERED: oxyCODONE HCL IR 5 MG TAB (IMMEDIATE RELEASE) PO PRN (15:06)
[2024-09-13] MEDS ORDERED: TAMSULOSIN HCL 0.4 MG CAP PO PRN (15:06)
[2024-09-13] MEDS ORDERED: VANCOMYCIN CONSULT ACTIVE PRN (15:06)
[2024-09-13] MEDS ORDERED: MAGNESIUM HYDROXIDE SUSP 30 ML UDC PO PRN (15:06)
[2024-09-13] MEDS ORDERED: HYDROmorphone INJ 0.5 MG/0.5 ML SYR IV PRN (15:06)
[2024-09-13] MEDS ORDERED: diphenhydrAMINE Capsule 25 MG CAP PO PRN (15:06)
[2024-09-13] MEDS ORDERED: NALOXONE HCL 0.4 MG/1 ML VIAL/CARP IV PRN (15:06)
[2024-09-13] MEDS ORDERED: ALUMINUM/MAGNESIUM SUSP 30 ML UDC PO PRN (15:06)
[2024-09-13] MEDS: FAMOTIDINE/PF 20 MG/2 ML VIAL IV ONE (16:21)
[2024-09-13] MEDS: BUPIVACAINE LIPOSOME 1.3% 133 MG/10 ML VIAL ONE (16:21)
[2024-09-13] MEDS ORDERED: TRANEXAMIC ACID / 0.7% NACL 1,000 MG/100 ML BAG IV SCH (20:00)
[2024-09-13] MEDS: DOCUSATE SODIUM 100 MG CAP PO SCH (20:02)
[2024-09-13] MEDS: ASPIRIN 81 MG ECTAB PO SCH (20:02)
[2024-09-13] MEDS: SENNA 8.6 MG TAB PO SCH (20:03)
[2024-09-13] MEDS: TRANEXAMIC ACID / 0.7% NACL 1,000 MG/100 ML BAG IV ONE (20:07)
[2024-09-14 06:37] LABS: Basophils # (auto) 0.01 K/uL (0.00-0.20); Basophils % (auto) 0.1 %; Hematocrit (blood only) 38.8 % (42.0-52.0); Hemoglobin 12.6 g/dl (14.0-18.0); Immature Granulocytes # (auto) 0.11 K/uL (0.01-0.20); Immature Granulocytes % (auto) 0.6 %; Lymphocytes # (auto) 0.99 K/uL (1.20-3.40); Lymphocytes % (auto) 5.4 %; Mean Corpuscular Hemoglobin 28.3 pg (25.0-34.0); Mean Corpuscular Hgb Conc 32.5 g/dL (32.0-36.0); Mean Platelet Volume 9.2 fL (9.4-12.4); Monocytes # (auto) 1.81 K/uL (0.11-0.59); Monocytes % (auto) 9.9 %; Neutrophils # (auto) 15.43 K/uL (1.40-6.50); Platelet Count 198 K/uL (130-400); RDW Coefficient of Variation 13.3 % (11.5-14.5); RDW Standard Deviation 41.5 fL (36.4-46.3); Red Blood Count 4.46 M/uL (4.70-6.10); White Blood Count 18.35 K/ul (4.8-10.8)
[2024-09-14 06:51] LABS: BUN Creatinine Ratio 18.6 (10-20); Calcium 8.6 mg/dl (8.6-10.3); Creatinine Clr Calc Pharmacy 89.5 ml/min; Potassium 4.4 mmol/L (3.5-5.1)
[2024-09-14 07:12] VITALS: BP 115/75; PULSE 74; RESP 20; TEMP 97.5; O2SAT 93
--- NOTE | 2024-09-14 07:43 | Orthopedic Progress Note ---
Date of Service September 14, 2024 Assessment & Plan (1) Osteoarthritis of left glenohumeral joint: Plan: End-stage osteoarthritis left glenohumeral joint. Document intact rotator cuff. Prior arthroscopy and prior MRI. Plan is for anatomic total shoulder replac ement. May need augmented glenoid component or posterior capsular shift and will perform biceps tenodesis. Plan is for a stemless simplicity total shoulder replacement if bone quality satisfactory. Postop day 1 stemless total shoulder replacement augmented glenoid with posterior capsular shift biceps tenodesis. Running any do limited therapy with hand wrist elbow range of motion shoulder shrugs no formal PT or range of motion for 3 weeks to allow healing of posterior capsular shift. Will start PT after 3 weeks. Patient okay for discharge today. Admission and Anticipated Discharge Date Admission Date: September 13, 2024 Subjective No complaints doing well no pain yet still some numbness in the hand Review of Systems Review of Systems: Feels well no chest pain shortness of breath or any other issues. Physical Exam Musculoskeletal: Left extremity in pillow sling. Dressing dry and intact. Motor function returned to normal left hand still some numbness still under the effects of block. Normal circulation. Results & Data Vital Signs (Past 12 Hours) Vital Signs Temp Pulse Resp BP Pulse Ox O2 Del Method 09/14/24 07:11 36.4 C L 74 20 115/75 93 Room Air 09/14/24 03:23 36.7 C 78 16 110/66 92 Room Air 09/13/24 23:40 36.7 C 93 H 16 120/68 93 Room Air Laboratory Results Stable Diagnostic Findings Stemless total shoulder replacement normally located
[2024-09-14] MEDS: dexAMETHasone 10 MG in SYRINGE 0 ML IV SCH (07:45)
[2024-09-14] MEDS: MULTIVITAMIN TAB PO SCH (07:45)
[2024-09-14] MEDS: PANTOprazole 40 MG TAB PO SCH (07:46)
[2024-09-14] MEDS: ATORVASTATIN 20 MG TAB PO SCH (07:46)
[2024-09-14] MEDS: SERTRALINE HCL 50 MG TABLET PO SCH (07:46)
--- NOTE | 2024-09-14 12:53 | Discharge Summary ---
Date of Service September 14, 2024 Admission HPI Per Admitting Provider 58-year-old male progressive pain decreased range of motion in his shoulder due to osteoarthritis. History of arthroscopic surgery 2018 subacromial decompression removal large loose body joint debridement. Patient denies headaches, sweats, fevers, chills, double vision, blurred vision, cough, sore throat, dysphagia, chest pain, sob, wheezing, n/v/d/c, numbness, tingling, fatigue, urinary symptoms. ROS positive for depression, acid reflux, kidney stones, high cholesterol. Principal Diagnosis Left shoulder osteoarthritis Discharge Exam Constitutional WD/WN, vitals as above no acute distress Musculoskeletal Shoulder: + surgical incision (Left shoulder dressing C/D/I); no skin erythema and no ecchymosis Neurologic normal touch/pain/proprioception Psychiatric A+Ox3, euthymic affect Speech: normal rate/rhythm/volume of speech Discharge Data Allergies Allergy/AdvReac Type Severity Reaction Status Date / Time Penicillins Allergy Unknown Hives Verified 09/13/24 08:13 Procedures Performed Operation Date: 09/13/24 09:50 Actual Procedures p Left Total Shoulder Arthroplasty, Left Shoulder Biceps Tenodesis, Left Shoulder Posterior Capsular Shift(Left) - Norman Palacios MD Ordered Studies 09/13/24 05:00 US - OR guided needle placemen Routine Hospital Course (1) Osteoarthritis of left glenohumeral joint: End-stage osteoarthritis left glenohumeral joint. Document intact rotator cuff. Prior arthroscopy and prior MRI. Plan is for anatomic total shoulder replacement. May need augmented glenoid component or posterior capsular shift and will perform biceps tenodesis. Plan is for a stemless simplicity total shoulder replacement if bone quality satisfactory. Postop day 1 stemless total shoulder replacement augmented glenoid with posterior capsular shift biceps tenodesis. Running any do limited therapy with hand wrist elbow range of motion shoulder shrugs no formal PT or range of motion for 3 weeks to allow healing of posterior capsular shift. Will start PT after 3 weeks. Patient okay for discharge today. Total Time Total Time Spent Total Time Spent (In Minutes): 20 Discharge Plan Discharge Items Patient Disposition: Home - Self-Care Reason For Visit: Primary Osteoarthritis of Left Shoulder, Biceps Te Discharge Diagnosis: Left shoulder osteoarthritis Activity: Per Instructions section Non-emergency contact: Surgeon Call non-emergency contact if: your pain is not controlled, your pain is worsening and your temperature is above 101 Follow-up/Referrals: Daniel High PA-C [Primary Care Provider] - Diet: Regular Addtl Attending Provider Instructions: ACTIVITY RECOMMENDATIONS: SELF CARE INSTRUCTIONS AFTER TOTAL SHOULDER ARTHROPLASTY A. You may do daily exercises as taught in physical therapy while in hospital. No lifting with the operative arm. Please schedule your outpatient physical therapy appointment to begin within 2-3 days after leaving the hospital. Specific restrictions will be written on your physical therapy prescription that is provided to you. You will not start physical therapy for 3 weeks after surgery. No internal rotation stretches. No reaching behind your back until instructed. A physical therapy prescription was placed in your discharge instructions. Your physical therapist will not perform any external rotation greater than 45 degrees, forward flexion greater than 80 degrees, or abduction greater than 80 degrees for 6 weeks. The sling will be used for 6 weeks. B. You are to wear your sling/immobilizer at all times EXCEPT when performing your daily exercises, participating in physical therapy and for hygiene purposes. C. You may perform dry, daily dressing changes. Please keep your incision covered. You may shower 48 hours after surgery. Do not apply soap or any ointment/lotions directly over incision. Do not soak incision in bath tub/swimming pool. D. You may use ice as needed to operative shoulder. E. You may resume previous diet. F. Silverlon: You have a Silverlon dressing on the surgical incision. It will remain in place for 7 days from the day of your surgery. After 7 days, you may remove the dressing, just as you would remove a Bandaid. You may shower with the Silverlon dressing in place. However, if you notice any water within the dressing, the dressing should be removed. You may cover the incision with a dry dressing once the Silverlon is removed if there is any drainage. SPECIAL CARE INSTRUCTIONS: MEDICATION INSTRUCTIONS: *It is recommended you take Aspirin 81 mg every 12 hours for four weeks post-op. VERY IMPORTANT TO READ AND REVIEW A. There are a few signs you need to watch for after you are home. Call [facility] at [phone] if you experience any of the followin. Increased severe shoulder pain. Some pain is expected especially when you exercise. 2. Increased swelling in you shoulder or arm; pain or swelling in either upper extremity. 3. Any fluid drainage from the incision. 4. Shortness of breath or chest pain. B. Please call [facility] at [phone] if you have any questions or concerns about your operation or recovery. C. Call your physician if: 1. Temperature is greater than 101 degrees (F). 2. Pain is not relieved by prescribed pain medications. 3. Increase drainage or redness from incision. 4. Unanswered questions or concerns. FOLLOW UP VISIT: Please call [facility] at [phone] to schedule a follow up appointment with Dr. Palacios or his PA in 12-14 days from your surgery date. Pending Studies at Discharge: No Stand-Alone Forms: My [facility], Smoking Cessation Medications and DC Order Prescriptions: New celecoxib [Celebrex] 200 mg capsule 200 mg PO Q12H Qty: 60 0RF aspirin 81 mg tablet,delayed release (DR/EC) 81 mg PO BID Qty: 60 0RF cefadroxil 500 mg capsule 500 mg PO Q12H Qty: 28 0RF oxycodone 5 mg tablet 5 mg PO Q4H PRN (Reason: pain) Qty: 20 0RF acetaminophen [Tylenol Extra Strength] 500 mg tablet 1,000 mg PO Q8H Qty: 90 0RF Continued atorvastatin [Lipitor] 20 mg Tablet 20 mg PO QAM pantoprazole 20 mg Tablet,Delayed Release (Dr/Ec) 20 mg PO QAM sertraline 50 mg Tablet 50 mg PO QAM Discontinued celecoxib [Celebrex] 50 mg Capsule 200 mg PO HS Discharge Orders: Discharge Order (Routine); Ordered 09/14/24 Ordered By: Norman Knapp/Other Patient Handouts: Oxycodone Oral Tablet, Cefadroxil Oral Tablet Admission Data Admit Date/Time: 09/13/24 13:53 Attending Provider: Norman Palacios Admit Provider: Norman Palacios Primary Care Provider: Daniel High Other Interventions: Discharge Summary Assessment (RN) Last Done: 09/14/24 08:54
== END 2024-09-14 10:58 | disposition home or self-care (01) ==
LOC: 3E 07:45 → ASU 07:45